=== PATIENT | female | born 1950 | race Caucasian/White ===

== ENCOUNTER 2025-04-13 12:27 | Emergency (ER) | payer MEDICARE, SELFPAY ==
--- NOTE | ~2025-04-13 | XR_ITS ---
Examination: XR chest 2V Clinical History: cough x 4 days hx of pneumonia Comparison: None Technique: PA and Lateral Findings: Cardiomediastinal silhouette normal size and configuration. Lungs clear. No acute bony abnormality. IMPRESSION: 1. No acute cardiopulmonary findings. Reviewed, dictated and finalized at location R.
--- NOTE | 2025-04-13 12:35 | ED.GENADULT ---
HPI - General Adult General Chief complaint: Upper Respiratory Infection Stated complaint: Chest cold Time Seen by Provider: 04/13/25 12:35 Source: patient Mode of arrival: ambulatory Limitations: no limitations History of Present Illness HPI narrative: 75-year-old female patient presents to [facility] with complaints of cold symptoms for the past 3-4 days. Patient states she has had a cough, runny nose, congestion and a mild low-grade fever. Patient states she has been taking some [id number] mucus neck is for her symptoms. Patient states over the summer she had pneumonia and states it was difficult for her to treated and had to use multiple antibiotics. Patient states she went come and get checked out to ensure that she does not have any more pneumonia at this time. Denies any nausea vomiting diarrhea. Denies body aches or chills but states she has had some fatigue. Related Data Home Medications ?Medication ?Instructions ?Recorded ?Confirmed ?Last Taken ?Type albuterol sulfate 90 mcg/actuation inhalation 04/13/25 Unknown History aerosol inhaler amlodipine 2.5 mg tablet mg 04/13/25 Unknown History atorvastatin 40 mg tablet mg 04/13/25 Unknown History doxycycline hyclate 50 mg capsule mg 04/13/25 Unknown History gabapentin 400 mg capsule mg 04/13/25 Unknown History hydroxychloroquine 200 mg tablet mg PO 04/13/25 Unknown History levothyroxine 112 mcg tablet mcg 04/13/25 Unknown History nortriptyline 25 mg capsule mg 04/13/25 Unknown History pramipexole 0.125 mg tablet mg 04/13/25 Unknown History pramipexole 0.5 mg tablet mg 04/13/25 Unknown History riboflavin (vitamin B2) 100 mg mg 04/13/25 Unknown History tablet (Vitamin B-2) telmisartan 20 mg tablet mg 04/13/25 Unknown History torsemide 10 mg tablet mg 04/13/25 Unknown History Allergies Allergy/AdvReac Type Severity Reaction Status Date / Time cat dander Allergy Intermediate Wheezing Verified 04/13/25 13:04 codeine Allergy Intermediate Confusion Verified 04/13/25 13:04 nifedipine (From Procardia) Allergy Intermediate Swelling Verified 04/13/25 13:04 nitrofurantoin (From Allergy Intermediate Swelling Verified 04/13/25 13:01 Macrobid) of the Eye terazosin Allergy Intermediate Abdominal Verified 04/13/25 13:04 Pain erythromycin base AdvReac Intermediate Abdominal Verified 04/13/25 13:04 Pain sulfamethoxazole (From AdvReac Intermediate Abdominal Verified 04/13/25 13:04 Bactrim) Pain trimethoprim (From Bactrim) AdvReac Intermediate Abdominal Verified 04/13/25 13:04 Pain Review of Systems Review of Systems: CONSTITUTIONAL: Positive low-grade fever, denies chills, or sweats. positive fatigue EYES: Denies visual changes, redness, or discharge. ENT: positive rhinorrhea, congestion, denies sore throat, or otalgia. CARDIOVASCULAR: Denies chest pain, palpitations, or edema. RESPIRATORY: positive cough , denies dyspnea. GASTROINTESTINAL: Denies abdominal pain, nausea, vomiting, or diarrhea. GENITOURINARY: Denies dysuria or hematuria. SKIN: Denies rash or itching. MUSCULOSKELETAL: Denies back pain, joint pain, or myalgia. NEUROLOGIC: Denies headache, numbness, or weakness. PSYCHIATRIC: Denies anxiety or depression. [facility] Past Medical History Medical History (Updated 04/13/25 @ 13:29 by Francheska Viramontes APRN) Rheumatoid arthritis Hypothyroidism RSD (reflex sympathetic dystrophy) Neuropathy Hypertension Surgical History Surgical History (Updated 04/13/25 @ 13:32 by Francheska Viramontes APRN) H/O neck surgery cervical fusion Comments At the time of my signature I agree with nursing past medical history, surgical, social, and family history. There is no relevant family history pertinent to the presenting complaint. Exam Narrative: GENERAL: Well-appearing, well-nourished, and in no acute distress. HEAD: Normocephalic, atraumatic. EYES: PERRLA and EOMI. ENT: Nares with erythema edema noted bilaterally, no rhinorrhea or epistaxis. Mucous membranes moist. posterior pharynx with no erythema, tonsillar enlargement, exudates or lesions present. Bilateral TMs are clear no erythema or foreign bodies the canal. NECK: Supple. No lymphadenopathy CHEST: Clear to auscultation. No respiratory distress. Patient able talk in clear complete Germain sentences. No obvious coughing noted during exam. HEART: Regular rate and rhythm. No murmur heard. Normal peripheral pulses. ABDOMEN: Soft, nontender, nondistended, normal active bowel sounds. EXTREMITIES: Normal range of motion. No edema. SKIN: Warm, dry, no rash. NEURO: No focal deficits. Alert and oriented x3. Course Course Level of Care: Express Care Visit Vital Signs Vital signs: Vital Signs Temperature 36.4 C L 04/13/25 12:46 Pulse Rate 87 04/13/25 12:46 Respiratory Rate 20 04/13/25 12:46 Blood Pressure 161/84 H 04/13/25 12:46 Pulse Oximetry 99 04/13/25 12:46 Oxygen Delivery Room Air 04/13/25 12:46 Temperature 36.4 C L 04/13/25 12:46 Pulse Rate 87 04/13/25 12:46 Respiratory Rate 20 04/13/25 12:46 Blood Pressure 161/84 H 04/13/25 12:46 Pulse Oximetry 99 04/13/25 12:46 Oxygen Delivery Room Air 04/13/25 12:46 Vital signs reviewed. The patient has been informed that they may have pre-hypertension or Hypertension based on a BP reading in the department. I recommend that the patient call the primary care provider listed on their discharge instructions or a physician of their choice this week to arrange follow up for further evaluation of possible pre-hypertension or Hypertension Medical Decision Making MDM Narrative Medical decision making narrative: Discussed with patient that her point of care testing for COVID and influenza are negative today. Discussed with her that her x-ray does not show any pneumonia at this time lungs are clear. Discussed with her this is most likely a viral infection and will takes time to get over. Discussed with patient I will provide her some Tessalon Perles to help with the coughing and highly encouraged that she increase her vitamin C and her zinc levels to help her immune system fight off this virus quicker. Patient states she is already taking vitamin-D. Discussed with patient if her symptoms worsen such as fevers last longer than 5 days she has has increased shortness of breath or anything else that she is welcome to come back and we can reassess. Patient verbalized understanding denies any other questions or concerns at this time. Differential Diagnosis Differential Diagnosis: Differential diagnosis: Allergic rhinitis, chronic sinusitis, tonsillitis, acute sinusitis, infectious mononucleosis, seasonal influenza, pertussis, diphtheria, meningococcal disease, viral syndrome, viral bronchitis, RSV, COVID-19 Vital Signs Vital Signs: Vital Signs Temperature 36.4 C L 04/13/25 12:46 Pulse Rate 87 04/13/25 12:46 Respiratory Rate 20 04/13/25 12:46 Blood Pressure 161/84 H 04/13/25 12:46 Pulse Oximetry 99 04/13/25 12:46 Oxygen Delivery Room Air 04/13/25 12:46 Temperature 36.4 C L 04/13/25 12:46 Pulse Rate 87 04/13/25 12:46 Respiratory Rate 20 04/13/25 12:46 Blood Pressure 161/84 H 04/13/25 12:46 Pulse Oximetry 99 04/13/25 12:46 Oxygen Delivery Room Air 04/13/25 12:46 Lab Data Labs: Lab Results 04/13/25 Range/Units 12:50 POC Influenza A Ag Negative (Negative) POC Influenza B Ag Negative (Negative) POC SARS CoV-2 Ag Negative (Negative) Imaging Data Radiologist's impression: [facility] [address] [place] [address] XRay Report Signed Patient: Debbie Shipley : 1950 MR#: [id number] Age: 75 Acct:[id number] Loc: [facility] ADM Date: 04/13/[address]: Ordering Physician: Francheska Viramontes [employer] Date of Service: 04/13/25 Procedure(s): XR chest 2V Accession Number(s): [id number] cc: UNKNOWN,DOCTOR; Francheska Viramontes [employer]~ Examination: XR chest 2V Clinical History: cough x 4 days hx of pneumonia Comparison: None Technique: PA and Lateral Findings: Cardiomediastinal silhouette normal size and configuration. Lungs clear. No acute bony abnormality. IMPRESSION: 1. No acute cardiopulmonary findings. Reviewed, dictated and finalized at location R. Critical Care Time Critical Care Time Critical Care Time: No Discharge Plan Discharge Clinical Impression: Viral URI with cough Patient Disposition: Home Condition: Stable Instructions: Antibiotic Form, Viral Syndrome (ED), Cold Symptoms (ED) Additional Instructions: Viral illness may last between 7-12days; antibiotic is NOT recommended at this time. Recommend antihistamine such as Benadryl at night time and Claritin/Zyrtec/Akua during the day Cough syrup may cause drowsiness; avoid driving or take it at night time. may take prescribed Tessalon Perles as needed for coughing. Also recommending increasing your vitamin C2 1000 mg in the a.m. and 2000 mg in the p.m. and may also want to take some zinc to help decrease of viral replication usually 40-50 mg daily for about 4-5 days. Also, recommend symptomatic treatment includes: rest, fluids, and increase humidity of the air at home. Recommend Acetaminophen or nonsteroidal anti-inflammatory agents (NSAIDs) as directed in the bottle to reduce fever and/pain/headache. Avoid smoking/second-hand smoke. Limit visits to areas with large crowds. Please schedule a follow-up visit with your personal physician for further evaluation and treatment within 3-5days. Including recheck and discussion of your blood pressure. If your symptoms persist, change or worsen significantly before you can contact your personal physician then please, without delay, go to the emergency department for further evaluation. Patient Language: Kazakh Prescriptions: New benzonatate 200 mg capsule 200 mg PO TID PRN (Reason: cough) 10 Days Qty: 30 0RF No Action atorvastatin 40 mg tablet riboflavin (vitamin B2) [Vitamin B-2] 100 mg tablet doxycycline hyclate 50 mg capsule gabapentin 400 mg capsule torsemide 10 mg tablet amlodipine 2.5 mg tablet pramipexole 0.5 mg tablet nortriptyline 25 mg capsule pramipexole 0.125 mg tablet telmisartan 20 mg tablet hydroxychloroquine 200 mg tablet PO albuterol sulfate 90 mcg/actuation HFA aerosol inhaler INHALATION levothyroxine 112 mcg tablet Follow-up/Referrals: UNKNOWN,DOCTOR [Primary Care Provider] Time of Disposition: 13:25
[2025-04-13 12:46] VITALS: BP 161/84; PULSE 87; RESP 20; TEMP 36.4; O2SAT 99
[2025-04-13 13:15] LABS: EDCOVIDSCREEN Negative (Negative); EDINFLUASCREEN Negative (Negative); EDINFLUBSCREEN Negative (Negative)
== END 2025-04-13 13:30 | disposition home or self-care (01) ==
PROVIDERS: Emergency Provider Nurse Practitioner Family
DX: J06.9 Acute upper respiratory infection, unspecified (principal); R05.9 Cough, unspecified; Z20.822 Contact with and (suspected) exposure to COVID-19; I10 Essential (primary) hypertension; G62.9 Polyneuropathy, unspecified; E03.9 Hypothyroidism, unspecified; M06.9 Rheumatoid arthritis, unspecified
CPT/HCPCS: 71046; 87426; 87804; 99203; G0463